=== PATIENT | female | born 1990 | race Caucasian/White ===

== ENCOUNTER 2016-07-29 07:59 | Emergency (ER) | payer BC ==
[2016-07-29 08:11] VITALS: BP 127/72
--- NOTE | 2016-07-29 08:37 | UC ---
Complaint Female HPI - HPI Summary HPI Summary: awoke with painful frequent urgent urination, no flank or back pain, no fevers chills or night sweats - History Of Current Complaint Chief Complaint: UCGU Stated Complaint: BURNING URINATION Time Seen by Provider: 07/29/16 08:14 Hx Obtained From: Patient Hx Last Menstrual Period: 07/04/16 ?: No Onset/Duration: Sudden Onset, Lasting Days - 1, Still Present Timing: Constant Severity Initially: Moderate Severity Currently: Moderate Character: Burning, Cramping Aggravating Factor(s): Urination Alleviating Factor(s): Nothing Associated Signs And Symptoms: Negative: Fever, Back Pain, Vaginal Bleeding/ Discharge, Vaginal Discharge, Nausea, Vomiting(# Of Episodes =), Genital Swelling, Genital Blisters, Retained Foregin Body (Specify) - Allergies/Home Medications Allergies/Adverse Reactions: Allergies Allergy/AdvReac Type Severity Reaction Status Date / Time No Known Allergies Allergy Verified 07/29/16 08:11 Home Medications: Home Medications Control 07/29/16 [History] PMH/Surg Hx/FS Hx/Imm Hx Previously Healthy: Yes - Surgical History Surgical History: None - Family History Family History: denies cardiovascular issues in family lineage - Social History Occupation: Employed Full-time Lives: With Family Alcohol Use: Weekly Alcohol Amount: once every week Substance Use Type: None Smoking Status (MU): Former Smoker Have You Smoked in the Last Year: No Review of Systems Constitutional: Negative Skin: Negative Eyes: Negative ENT: Negative Respiratory: Negative Cardiovascular: Negative Gastrointestinal: Negative Genitourinary: Dysuria, Frequency, Urgency Motor: Negative Neurovascular: Negative Musculoskeletal: Negative Neurological: Negative Psychological: Negative All Other Systems Reviewed And Are Negative: Yes Physical Exam Triage Information Reviewed: Yes Appearance: Well-Appearing, No Pain Distress, Well-Nourished Vital Signs: Initial Vital Signs Temp 98.7 F 07/29/16 08:02 Pulse 52 07/29/16 08:02 Resp 16 07/29/16 08:02 BP 127/72 07/29/16 08:02 Pulse Ox 100 07/29/16 08:02 Vital Signs Reviewed: Yes Eye Exam: Normal Eyes: Positive: Conjunctiva Clear ENT Exam: Normal ENT: Positive: Normal ENT inspection, Hearing grossly normal, Pharynx normal, TMs normal. Negative: Nasal congestion, Nasal drainage, Tonsillar swelling, Tonsillar exudate, Trismus, Muffled/hoarse voice Neck exam: Normal Neck: Positive: Supple, Nontender, No Lymphadenopathy Respiratory Exam: Normal Respiratory: Positive: Chest non-tender, Lungs clear, Normal breath sounds, No respiratory distress, No accessory muscle use Cardiovascular Exam: Normal Cardiovascular: Positive: RRR, No Murmur, Pulses Normal, Brisk Capillary Refill Abdominal Exam: Normal Abdomen Description: Positive: No Organomegaly, Soft, Other: - suprapubic discharge Bowel Sounds: Positive: Present Musculoskeletal Exam: Normal Neurological Exam: Normal Neurological: Positive: Alert Psychological Exam: Normal Skin Exam: Normal Diagnostics - Laboratory Diagnostic Studies Completed/Ordered: ua-(-) nitrites, 500 leuks Re-Evaluation - Re-Evaluation First Eval Change: Unchanged Complaint Female Dx - Course Course Of Treatment: macrodib, pyridium, increase fluids, re-check prn - Differential Dx/Diagnosis Differential Diagnosis/HQI/PQRI: Ovarian Cyst, Pelvic Inflammatory Disease, Renal Colic, Urinary Tract Infection Provider Diagnoses: UTI Discharge - Discharge Plan Condition: Stable Disposition: HOME Prescriptions: Nitrofurantoin Monohyd Macro [Macrobid] 100 mg PO BID #20 cap Phenazopyridine TAB* [Pyridium TAB*] 100 mg PO TID PRN #6 tab PRN Reason: urinary burning Patient Education Materials: Phenazopyridine (By mouth), Urinary Tract Infection in Women (ED) Referrals: Seth Arredondo MD [Medical Doctor] - If Needed
== END 2016-07-29 09:03 | disposition home or self-care (01) ==
LOC: UCEAST 07:59
DX: N39.0 Urinary tract infection, site not specified (principal); B96.89 Other specified bacterial agents as the cause of diseases classified elsewhere; Z87.891 Personal history of nicotine dependence; Z32.02 Encounter for pregnancy test, result negative
CPT/HCPCS: 81002; 81025; 87077; 87086; 87186; 99212; G0463